=== PATIENT | male | born 1950 | race Caucasian/White ===

== ENCOUNTER 2017-04-04 13:41 | Emergency (ER) | payer OTHER ==
[2017-04-04 13:49] LABS: EOSINOPHIL (%) 0.9 % (0-5); EOSINOPHIL COUNT 0.2 K/uL (0-0.3); HEMATOCRIT 42.2 % (38.0-50.0); IMMATURE GRANULOCYTE (%) 0.8 % (0.0-0.7); IMMATURE GRANULOCYTE COUNT 0.2 K/uL; INSTRUMENT ABS NEUTROPHIL CT 16.4 K/uL; MCHC 34.1 G/DL (30.0-36.0); MCV 81.9 FL (86-99); MEAN PLAT.VOLUME 10.8 uM^3 (9.0-12.4); MONOCYTE (%) 6.4 % (3-12); MONOCYTE COUNT 1.4 K/uL (0-0.8); NEUTROPHIL (%) 77.7 % (45-76); NEUTROPHIL COUNT 16.4 K/uL (1.8-6.4); PLATELET COUNT 322 K/uL (156-360); RBC DIS.WIDTH-CV 13.7 % (11.8-14.6); RBC DIS.WIDTH-SD 40.3 % (39-53); RED BLOOD COUNT 5.15 M/uL (4.00-5.50); WHITE BLOOD COUNT 21.1 K/uL (4.1-10.2)
[2017-04-04 14:00] LABS: AMYLASE 33 IU/L (1-118); CHLORIDE 97 mEq/L (99-109); SODIUM 138 mEq/L (136-147)
[2017-04-04 14:01] LABS: GLUCOSE 208 mg/dL (70-99)
[2017-04-04 14:03] LABS: ANION GAP 15 MEQ/L (2-14)
[2017-04-04 14:05] LABS: SERUM ETHYL ALCOHOL < 10 mg/dL
[2017-04-04 14:06] LABS: UREA NITROGEN (BUN) 17 mg/dL (9-23)
[2017-04-04 14:08] LABS: GFR ESTIMATE (CALCULATED) > 59 mL/min/; LIPASE 16 U/L (1.0-51.0)
[2017-04-04] MEDS ORDERED: NORCO 5/3251 TABLET PO (15:21)
== END 2017-04-04 17:50 | disposition home or self-care (01) ==
LOC: TRA 13:41
PROVIDERS: Emergency Medicine
PROC: 3E0234Z Introduction of Serum, Toxoid and Vaccine into Muscle, Percutaneous Approach (ICD-10-PCS; principal; 2017-04-04)
DX: S80.812A Abrasion, left lower leg, initial encounter (principal); S80.811A Abrasion, right lower leg, initial encounter; S70.312A Abrasion, left thigh, initial encounter; S70.311A Abrasion, right thigh, initial encounter; Y92.410 Unspecified street and highway as the place of occurrence of the external cause; V28.4XXA Motorcycle driver injured in noncollision transport accident in traffic accident, initial encounter; M25.511 Pain in right shoulder; E78.5 Hyperlipidemia, unspecified; I10 Essential (primary) hypertension; M79.1 Myalgia
CPT/HCPCS: 71010; 72170; 80048; 81003; 82150; 83690; 85025; 86850; 86900; 86901; 99281; 99285; G0480; J1885; J2270